=== PATIENT | female | born 1985 | race Caucasian/White ===

== ENCOUNTER 2022-12-28 01:00 | Day surgery (SDC) | payer BC, SELFPAY ==
[2022-12-17 11:24] VITALS: BMI 22.4
--- NOTE | 2022-12-17 11:29 | PC.NURSE ---
Report to the Outpatient Waiting Room, entrance under the green pavilion located off [facility], at time 0600 on date 12/28/22. Planned Procedure Time: 0730. Time changes happen often and if your time is changed the preop area will call you the afternoon before. - You and your visitor will be asked to self-screen and do not enter if you have any COVID symptoms. - Only one visitor is requested with a max of two and NO children visitors are allowed at this time. - The patient visitor may be requested to leave or wait in car when not with patient due to distancing restrictions. - A mask is optional within the hospital at this time. Patients may have clear liquids (water, carbonated beverages, clear teas, apple juice) until 3 hours prior to surgery with a maximum of 20 ounces. - No food from midnight until time of surgery Take the following medications with a SIP of water the morning of surgery: N/A DO NOT STOP ANY OF YOUR OTHER PRESCRIPTION MEDICATIONS PRIOR TO SURGERY?EXCEPT THE FOLLOWING Medications to discontinue per physician: N/A Date to take last dose: N/A Please no make-up, nail azerbaijani, hairspray, perfume, deodorant, or body powder the day of surgery. No jewelry (including any body piercings) or valuables the day of surgery, leave them at home. Please take a shower or bath the night before, or the morning of, surgery with an antibacterial soap. Wear comfortable, loose fitting clothing. - Jewelry must be removed prior to entering the operating room. Rings and piercings that are not removed may be cut off. - The hospital will not accept responsibility for valuables. - Please leave all valuables, including medications, at home the day of surgery. If you are going home after surgery, a licensed transfer driver must drive you home. - NO public transportation without another adult if you receive anesthesia. - We recommend that an adult stay with you for 24 hours following discharge. - We also recommend that you do not drive, make important decision, drink alcoholic beverages, or take any drugs that were not prescribed by your health care provider for at least 24 hours after your discharge time. Follow any additional instructions given to you from your surgeon. If you or anyone in your household have experienced Covid symptoms in the past week, please notify your surgeon or the nurse liaison at the phone number below for possible testing. Telephone instructions given to PT - AJAY LOW and asked if any additional questions and then verbalized understanding. Patient advised to call surgeon office or pre surgery nurse liaison [phone] if any additional questions.
[2022-12-28] VITALS (9 sets, daily range): BP systolic 115–145; BP diastolic 85–95; PULSE 51–67; RESP 10–20; TEMP 36.5–36.9; O2SAT 99–100
[2022-12-28] MEDS: LACTATED RINGERS 1,000 ML 30 ML IV CONT ×2 (06:20→09:01)
[2022-12-28] MEDS: ACETAMINOPHEN 500 MG TABLET 1000 MG PO (06:20)
[2022-12-28] MEDS: GABAPENTIN 300 MG CAPSULE PO (06:20)
--- NOTE | 2022-12-28 07:14 | WPDANESEPPF ---
Anes - Initial Pre Proc Eval Procedure: Operation Date: 12/28/22 07:30 Proposed Procedures p Diagnostic Laparoscopy with Bilateral Salpingectomy, Hysteroscopy, Dilation and Curettage, Novasure Endometrial Ablation - Zaida Sin DO Date/Time: 12/28/22 07:14 Surgeon: Zaida Sin DO Pre Op Diagnosis: Desire Surgical Sterility, heavy Menses Patient Data Age: 37 Gender: F Height: 1.65 m Weight: 59.6 kg Last Vital Signs Temp 36.5 C 12/28/22 06:04 Pulse 67 12/28/22 06:04 Resp 16 12/28/22 06:04 BP 115/87 12/28/22 06:04 Pulse Ox 100 12/28/22 06:04 O2 Del Method Room Air 12/28/22 06:04 Allergies Allergy/AdvReac Type Severity Reaction Status Date / Time No Known Allergies Allergy Verified 12/28/22 06:30 Home Medications Medication Instructions Recorded Confirmed Type norethindrone 1 mg-ethinyl 1 tablet PO DAILY 12/17/22 12/28/22 History estradiol 35 mcg tablet (Alyacen) Patient hx anesthesia problems: none Family hx anesthesia problems: none Results Review: All pre-operative results and documents have been reviewed as part of the pre-operative evaluation. [facility] Social History Social History Smoking packs per day: 0.5 Smoking cigarettes per day: 10.0 Years smoked: 15 Smoking pack-years: 7.50 Smoking status: Current every day smoker Tobacco type: cigarettes Alcohol intake: current Drinks per week: 8 Substance use: never Substance use type: does not use Living arrangements: with family Spiritual care concerns: No Anes - Eval Final PreProcedure Day of Procedure 12/28/22 07:14 Patient weight: normal Heart: regular rate and rhythm Lungs: clear to auscultation Airway: Mallampati scale class II Neurological: alert and oriented Last oral intake: >/= 8 hours ASA classification: II Emergent: no Anesthetic plan: proceed Anesthesia type and monitoring: general ETT and standard monitoring Results Review: All pre-operative results and documents have been reviewed as part of the pre-operative evaluation. Informed Consent: The patient's anesthetic plan and its attendant risks and benefits were discussed with the patient/family/POA. Questions were solicited and answers provided to the satisfaction of the patient/family/POA.
--- NOTE | 2022-12-28 07:22 | PM.IMHP ---
H&P: HPI History of Present Illness Date/Time: 12/28/22 07:22 Chief Complaint: I'm here for my surgery Narrative: Mara presents for diagnostic laparoscopy, bilateral salpingectomy, hysteroscopy, D&C, Novasure ablation. She desires permanent sterilization. Review of Systems Review of Systems: All systems reviewed & are unremarkable except as noted in HPI and below PMFSH Social History Social History Smoking packs per day: 0.5 Smoking cigarettes per day: 10.0 Years smoked: 15 Smoking pack-years: 7.50 Smoking status: Current every day smoker Tobacco type: cigarettes Alcohol intake: current Drinks per week: 8 Substance use: never Substance use type: does not use Living arrangements: with family Spiritual care concerns: No Meds Home Medications and Allergies Home Medications Medication Instructions Recorded Confirmed Type norethindrone 1 mg-ethinyl 1 tablet PO DAILY 12/17/22 12/28/22 History estradiol 35 mcg tablet (Alyacen) Allergies Allergy/AdvReac Type Severity Reaction Status Date / Time No Known Allergies Allergy Verified 12/28/22 06:30 Vital Signs Vital Signs - 24 hr 12/28/22 06:04 Temperature 36.5 C Pulse Rate 67 Respiratory Rate 16 Blood Pressure 115/87 Pulse Oximetry 100 Oxygen Delivery Room Air Exam Const: General: comfortable and no acute distress Eyes: General: appearance normal, both eyes and all related structures Sclera: sclerae normal Resp: Effort & Inspection: normal respiratory effort Auscultation: clear to auscultation bilaterally Cardio: Rate: regular rate Rhythm: regular rhythm GI: GI Palp: Yes Soft to palpation Auscultation: normal bowel sounds Skin: General skin exam: normal color and no rashes or lesions noted Wounds: no wounds Psych: Mental Status: mental status grossly normal Affect: normal affect Assessment and Plan Assessment and plan (1) Sterilization: Code(s): Z30.2 - Encounter for sterilization Status: Acute (2) Heavy menstrual bleeding: Code(s): N92.0 - Excessive and frequent menstruation with regular cycle Status: Acute (3) Abnormal uterine bleeding: Code(s): N93.9 - Abnormal uterine and vaginal bleeding, unspecified Status: Acute Plan Undesired fertility Abnormal uterine bleeding Quality VTE Prophylaxis VTE prophylaxis: mechanical ordered If No VTE Prophylaxis Answer both mechanical and pharmacologic: Reason no pharmacologic proph: medical contraindication
--- NOTE | 2022-12-28 07:25 | WPDHPUPDATE1 ---
History and Physical Update Update Date/Time: 12/28/22 07:25 History and Physical has been reviewed, including an updated exam of the patient. There are NO changes in the patient's condition. Risks, benefits, and alternatives have been discussed and questions answered. Patient agrees to proceed with procedure.
[2022-12-28] MEDS: metroNIDAZOLE 500 MG/ISO 100ML 500 MG/100 ML BAG 100 MG IVPB (08:33)
[2022-12-28] MEDS: DOXYCYCLINE 100 MG/NS 100 ML 100 MG/100 ML BAG IVPB (08:47)
[2022-12-28] MEDS: BUPIVACAINE/EPINEPHRINE 0.25% 50 ML VIAL INFILTRATE (08:53)
--- NOTE | 2022-12-28 09:02 | W.PM.PROC2 ---
Procedure Note - Detailed Date of Procedure 12/28/22 Pre-op Diagnosis Desire Surgical Sterility, heavy Menses Post-op Diagnosis Same Procedure Performed Diagnostic laparoscopy, bilateral salpingectomy, repair of uterine rupture Surgeon Zaida Sin DO Organic Preparation Analyst Roopa Anesthesia General Indications Desires surgical sterilization, heavy menstrual bleeding Findings Normal appearing vulva and vaginal canal. Medium sized cervix with a nabothian cyst and ectropion. Uterus sounded to 6.5cm. Internally, the bowels, stomach, liver and gallbladder were unremarkable. The balloon of the uterine manipulator was seen to have ruptured through the top of the uterus despite being placed at less than the endometrial length. The tubes, ovaries, cul-de-sac and bladder flap were unremarkable. Description of Procedure The patient was taken to the operating room where she was placed under general anesthesia. She was prepped and draped in the normal sterile fashion in the dorsal lithotomy position. A time-out was performed. A speculum was placed in the vagina and the cervix was visualized. The anterior lip was grasped with a long Allis clamp. Cervix was sequentially dilated up to accommodate uterine manipulator. The uterus was sounded to 6.5 cm, the uterine manipulator was adjusted to 6 cm and was placed without difficulty. Gloves were changed and attention was then turned to the abdomen. Skin above the umbilicus was grasped with 2 penetrating towel clamps. The skin was injected and a small incision was made. Veress needle was introduced and the saline water drop test was performed to confirm intraperitoneal placement. CO2 insufflation was started the abdomen was brought to a filling pressure of 15 mmHg. The Veress needle was then replaced with a 5 mm Optiview trocar. Survey of the abdomen revealed no evidence of bowel or vascular injury upon initial entry. The patient was then placed in steep Trendelenburg position. Additional port sites in the right and left lower quadrants were identified, injected and incised. 5 mm trocars were introduced under direct visualization. Survey of the abdomen and pelvis revealed the above-mentioned findings. Despite the uterine manipulator being placed at a distance less than the full length of the uterine cavity, it had ruptured through the fundus towards the left cornua. The uterine manipulator balloon was slightly deflated and the device was pulled back. The right tube was then elevated and was cauterized and transected off using the LigaSure device. It was removed through the preschool teacher assistant port. The repeat procedure was repeated in an identical fashion on the left-hand side and the specimen was removed as well. The defect in the fundus of the uterus was large enough it would require reapproximation. An additional port site correction between the left lower quadrant and the umbilicus was marked and injected. The skin was incised in a 10 mm trocar was introduced Under direct visualization. A 2-0 V lock was then introduced and the uterine defect was sutured in a running fashion with good hemostasis. No evidence of uterine hematoma or hematometra was noted. Copious irrigation and suction were used in the pelvis to clear out any blood and fluids. Surgicel was placed over the defect as additional protection. The pedicles were reinspected and found to be hemostatic. The 10 mm trocar was removed and the fascia was reapproximated using the Pavel Miguel device and an 0 Vicryl. The instruments and the trocars removed, the CO2 gas was allowed to escape. The abdominal incisions were reapproximated using 4-0 Monocryl in an interrupted subcuticular fashion. The uterine manipulator was removed frothe procedure.xycycline and Flagyl were given once the defect was identified. The patient was taken to the recovery room in stable condition. All instrument sponge counts were correct at the conclusion of Estimated Blood Loss 25
[2022-12-28] MEDS: fentaNYL CITRATE INJ (*CRX) 100 MCG/2 ML VIAL 25 MCG IV PUSH ×6 (09:18→10:08)
[2022-12-28] MEDS: ONDANSETRON INJ 4 MG/2 ML VIAL IV PUSH (09:27)
[2022-12-28] MEDS: oxyCODONE HCL (*CRX) 5 MG TAB IR PO (10:33)
== END 2022-12-28 11:24 | disposition home or self-care (01) ==
PROVIDERS: Visit Provider Obstetrics & Gynecology Gynecologic Oncology
PROC: (CPT 49320; principal; 2022-12-28 07:30)
DX: Z30.2 Encounter for sterilization (principal); N92.0 Excessive and frequent menstruation with regular cycle; N88.8 Other specified noninflammatory disorders of cervix uteri; N99.71 Accidental puncture and laceration of a genitourinary system organ or structure during a genitourinary system procedure; F17.210 Nicotine dependence, cigarettes, uncomplicated
CPT/HCPCS: 58661; 58578; 88302; A9270; J1100; J2250; J2405; J2704; J2710; J3010; J7030; J7120